=== PATIENT | female | born 1985 | race Caucasian/White ===

== ENCOUNTER 2017-12-27 13:40 | Emergency (ER) | payer OTHER ==
[~2017-12-27] VITALS: Ht 157.5 cm; Wt 86.2 kg
[~2017-12-27 13:40] MED LIST: ASPIRIN325 PO; LACTASE 3000U T1 TA1 PO; NORCO 5-325 TA1 EACH PO; ZANTAC 150MG T150 M1 PO; ZOFRAN4 MG PO
[2017-12-27 13:41] VITALS: BP 120/86
== END 2017-12-27 20:47 | disposition home or self-care (01) ==
LOC: ER 13:40
DX: S93.601A Unspecified sprain of right foot, initial encounter (principal); W10.9XXA Fall (on) (from) unspecified stairs and steps, initial encounter; Y93.89 Activity, other specified; Y92.89 Other specified places as the place of occurrence of the external cause; Y99.8 Other external cause status

== ENCOUNTER 2018-09-04 03:19 | Emergency (ER) | payer OTHER ==
[~2018-09-04] VITALS: Ht 157.5 cm; Wt 79.4 kg
[2018-09-04] MEDS ORDERED: CLARITIN10 MG PO (03:34)
[2018-09-04] MEDS ORDERED: TRIMETHOPRIM /P10 M1 OPHTHALMIC (04:34)
[2018-09-04 04:44] VITALS: BP 111/81
== END 2018-09-04 04:45 | disposition home or self-care (01) ==
LOC: ER 03:19
DX: S05.01XA Injury of conjunctiva and corneal abrasion without foreign body, right eye, initial encounter (principal); X58.XXXA Exposure to other specified factors, initial encounter; Y93.89 Activity, other specified; Y92.89 Other specified places as the place of occurrence of the external cause; Y99.8 Other external cause status; Z90.49 Acquired absence of other specified parts of digestive tract

== ENCOUNTER → 2018-12-13 | Outpatient (CLI) | payer OTHER ==
[~2018-12-13] MED LIST changes: +CLARITIN10 MG PO; +TRIMETHOPRIM /P10 M1 OPHTHALMIC
== END ==
LOC: MRI 07:18
DX: M19.011 Primary osteoarthritis, right shoulder (principal)

== ENCOUNTER → 2019-09-23 | Outpatient (CLI) | payer OTHER ==
[2019-09-23 13:44] LABS: ABSOLUTE NEUTROPHILS 3.3 thou/uL (1.4-8.2); BASOPHILS 0.9 % (0.0-2.0); EOSINOPHILS 1.7 % (0.0-3.0); HEMATOCRIT 44.3 % (37.0-47.0); HEMOGLOBIN 14.9 gm/dL (12.0-15.0); LYMPHOCYTES 35.6 % (24.0-44.0); MCH 30.5 pg (26.0-34.0); MCHC 33.7 g/dL (28.0-37.0); MCV 90.6 fL (80.0-100.0); MONOCYTES 6.4 % (1.0-8.0); PLATELET COUNT 398 thou/uL (150-400); POLYS 55.4 % (36.0-66.0); RBC 4.89 mil/uL (4.20-5.00); RDW 13.4 % (10.5-14.5); URINE BILIRUBIN NEGATIVE (Negative); URINE BLOOD NEGATIVE (Negative); URINE CLARITY CLEAR; URINE COLOR YELLOW; URINE GLUCOSE-RANDOM* NEGATIVE (Negative); URINE KETONES NEGATIVE (Negative); URINE LEUKOCYTES NEGATIVE (Negative); URINE NITRITE NEGATIVE (Negative); URINE PROTEIN (DIPSTICK) NEGATIVE (Negative); URINE SPECIFIC GRAVITY 1.015 (1.005-1.035); URINE UROBILINOGEN 0.2 E.U./dl (0.2-1.0); WBC 5.9 thou/uL (4.0-11.0)
[2019-09-23 13:57] LABS: ALBUMIN 4.2 g/dL (3.4-5.0); CALCIUM 9.2 mg/dL (8.5-10.1); CREATININE 0.6 mg/dL (0.6-1.0); POTASSIUM 4.2 mmol/L (3.5-5.1); TOTAL BILIRUBIN 0.4 mg/dL (0.2-1.0); TOTAL PROTEIN 7.4 g/dL (6.4-8.2)
== END ==
LOC: LAB 10:59
PROVIDERS: ATTEND Nurse Practitioner
DX: R40.4 Transient alteration of awareness (principal)

== ENCOUNTER → 2019-10-04 | Outpatient (CLI) | payer OTHER | LOC: CAT 12:50 | PROVIDERS: ATTEND Nurse Practitioner | DX: R41.82 Altered mental status, unspecified (principal); R90.82 White matter disease, unspecified ==

== ENCOUNTER → 2019-12-13 | Outpatient (CLI) | payer OTHER | LOC: ULTRA 09:09 | PROVIDERS: ATTEND Family Medicine | DX: K76.0 Fatty (change of) liver, not elsewhere classified (principal); Z90.49 Acquired absence of other specified parts of digestive tract ==

== ENCOUNTER → 2019-12-22 | Outpatient (CLI) | payer OTHER ==
--- NOTE | 2020-01-04 12:03 | EEG ---
[facility] [place] [address] ELECTROENCEPHALOGRAM Name: KRISHNA TORRES Room #: REG [facility]#: [id number] Admission: 12/22/19 Attend Phys: Shon Clemons MD Discharge: Date of : 83 Report #: [id number] THIS REPORT FOR: //name// CC: Jf Clemons DATE OF SERVICE: 12/23/2019 This patient is being evaluated for memory loss. EEG was done by placing the electrode by standard 10-20 system of electrode placement. Both referential and sequential montages were used. Background activity appeared to be about 9-10 Hz and 30 microvolt. This is a symmetrical activity. Photic stimulation is unremarkable. The patient went to sleep that is associated with bilateral slowing and vertex sharp waves. Throughout the record, no active epileptiform activity was noticed. IMPRESSION: This patient's EEG is within normal limits. Thank you very much for this referral. <ELECTRONICALLY SIGNED> By: Shon Clemons MD 01/04/20 1203 [id number] 1132 Shon Clemons MD /nt
== END ==
LOC: LAB 08:41 → MRI 08:41
PROVIDERS: ATTEND Psychiatry & Neurology Neuromuscular Medicine
DX: R41.3 Other amnesia (principal)

== ENCOUNTER 2020-01-29 12:16 | Emergency (ER) | payer OTHER ==
[~2020-01-29] VITALS: Ht 157.5 cm; Wt 87.1 kg
[2020-01-29 12:17] VITALS: BP 120/85
[2020-01-29] MEDS ORDERED: ZYRTEC10 M4 PO (12:23)
== END 2020-01-29 13:42 | disposition home or self-care (01) ==
LOC: ER 12:16
DX: J02.9 Acute pharyngitis, unspecified (principal); R09.81 Nasal congestion; Z90.49 Acquired absence of other specified parts of digestive tract; Z79.899 Other long term (current) drug therapy; Z20.828 Contact with and (suspected) exposure to other viral communicable diseases

== ENCOUNTER 2020-03-18 15:20 | Emergency (ER) | payer OTHER ==
[~2020-03-18] VITALS: Ht 154.9 cm; Wt 86.2 kg
[~2020-03-18 15:20] MED LIST changes: +ZYRTEC10 M4 PO
[2020-03-18 15:33] VITALS: BP 127/88
[2020-03-18 16:26] LABS: URINE BILIRUBIN NEGATIVE (Negative); URINE BLOOD NEGATIVE (Negative); URINE CLARITY CLEAR; URINE COLOR YELLOW; URINE GLUCOSE-RANDOM* NEGATIVE (Negative); URINE KETONES NEGATIVE (Negative); URINE LEUKOCYTES-REFLEX TRACE (Negative); URINE NITRITE-REFLEX NEGATIVE (Negative); URINE PROTEIN (DIPSTICK) NEGATIVE (Negative); URINE SPECIFIC GRAVITY 1.025 (1.005-1.035); URINE UROBILINOGEN 0.2 E.U./dl (0.2-1.0)
[2020-03-18] MEDS ORDERED: MOBIC7.5 MG PO (16:35)
[2020-03-18] MEDS ORDERED: TIZANIDINE4 MG/1 TA1 PO (16:35)
[2020-03-18] MEDS ORDERED: PREDNISONE 20 M20 MG PO (16:35)
== END 2020-03-18 17:16 | disposition home or self-care (01) ==
LOC: ER 15:20
PROVIDERS: Nurse Practitioner
DX: S39.012A Strain of muscle, fascia and tendon of lower back, initial encounter (principal); Z90.49 Acquired absence of other specified parts of digestive tract; Z79.899 Other long term (current) drug therapy; X58.XXXA Exposure to other specified factors, initial encounter; Y93.89 Activity, other specified; Y92.89 Other specified places as the place of occurrence of the external cause; Y99.8 Other external cause status

== ENCOUNTER 2021-03-16 21:10 | Emergency (ER) | payer OTHER ==
[~2021-03-16] VITALS: Ht 157.5 cm; Wt 88.5 kg
[~2021-03-16 21:10] MED LIST changes: +MOBIC7.5 MG PO; +PREDNISONE 20 M20 MG PO; +TIZANIDINE4 MG/1 TA1 PO
[2021-03-16 21:15] VITALS: BP 145/94
== END 2021-03-16 22:25 | disposition home or self-care (01) ==
LOC: ER 21:10
DX: J02.9 Acute pharyngitis, unspecified (principal); Z90.49 Acquired absence of other specified parts of digestive tract